=== PATIENT | male | born 1995 | race Caucasian/White ===

== ENCOUNTER 2021-02-12 18:30 | Outpatient (CLI) | payer OTHER, BC ==
--- NOTE | 2021-02-13 10:50 | XRAY Report ---
PROCEDURE: Knee 2 View RT INDICATIONS: CONTUSION OF R THIGH TECHNIQUE: 2 views of the right knee(s) were acquired. COMPARISON: None. FINDINGS: Bones: No fractures or dislocations. No suspicious bony lesions. Soft tissues: No joint effusion. No suspicious soft tissue calcifications. IMPRESSION: No acute fracture. No osseous lesion. If symptoms and/or clinical suspicion for patholog y continue, further assessment with repeat plain films, or advanced imaging (e.g., CT, MRI, or bone s can) is recommended for further assessment. Reviewed by: Rocio Simon MD on 02/13/2021 10:49 AM PDT Approved by: Rocio Simon MD on 02/13/2021 10:49 AM PDT Station ID: [id number]
--- NOTE | 2021-02-13 11:21 | XRAY Report ---
PROCEDURE: Femur 2V RT INDICATIONS: CONTUSION OF R THIGH TECHNIQUE: 4 views of the femur were acquired. COMPARISON: None. FINDINGS: Bones: No fractures or dislocations. No suspicious bony lesions. Soft tissues: No suspicious soft tissue calcifications or masses. IMPRESSION: Negative examination. If the patient's pain or other symptoms persist, consider further evaluation [facility] MRI. Reviewed by: Rafiq Patrick MD on 02/13/2021 11:20 AM PDT Approved by: Rafiq Patrick MD on 02/13/2021 11:20 AM PDT Station ID: [id number]
== END 2021-02-12 18:35 ==
LOC: DI.N 18:30
PROVIDERS: ATTEND Family Medicine
DX: S70.11XA Contusion of right thigh, initial encounter (principal)

== ENCOUNTER 2021-02-25 07:28 | Outpatient (CLI) | payer BC ==
[2021-02-25 15:21] LABS: ALT ALANINE AMINOTRANSFERASE 53 IU/L (10-60); AST ASPARTATE AMINOTRANSFERASE 33 IU/L (10-42); CHOL/HDL RATIO 1.9 (<5.0); CHOLESTEROL 80 mg/dL; CK- CREATINE KINASE 160 IU/L (22-269); HDL CHOLESTEROL 42 mg/dL; LDL CHOLESTEROL,CALCULATED 30 mg/dL; LDL CHOLESTEROL,DIRECT 23 mg/dL; LDL/HDL RATIO 0.7 (<3.6); TRIGLYCERIDES 41 mg/dL; VLDL CHOLESTEROL 8 mg/dL
== END 2021-02-25 07:29 | disposition home or self-care (01) ==
LOC: LAB.S 07:28
PROVIDERS: ATTEND Internal Medicine Cardiovascular Disease
DX: E78.5 Hyperlipidemia, unspecified (principal)
CPT/HCPCS: 36415; 80061; 82550; 83721; 84450; 84460